=== PATIENT | male | born 1985 | race Caucasian/White ===

== ENCOUNTER 2020-08-11 10:26 | Outpatient (CLI) | payer BC, SELFPAY ==
[2020-08-11 10:36] LABS: Hemoglobin 15.7 g/dL (14.0-18.0); Mean Corpuscular HGB Conc 33.4 g/dL (32.0-36.0); Mean Corpuscular Volume 89.7 fL (78.0-102.0); Platelet Count Result 247 K/mm3 (150-420); Red Blood Count 5.24 M/mm3 (4.70-6.10); White Blood Count 7.9 K/mm3 (4.8-10.8)
[2020-08-11 11:40] LABS: Alanine Aminotransferase 82 U/L (16-63); Albumin Level 4.4 g/dL (3.4-5.0); Alkaline Phosphatase 59 U/L (46-116); Anion Gap 12 mmol/L (8-16); Aspartate Amino Transferase 41 U/L (15-37); Bilirubin,Total 1.3 mg/dL (0.00-1.00); Blood Urea Nitrogen 12 mg/dL (7-18); Calcium 9.3 mg/dL (8.5-10.1); Carbon Dioxide 25 mmol/L (21-32); Chloride 104 mmol/L (98-108); Cholesterol 251 mg/dL (0-200); Estimated Glomerular Filt Rate > 60; Glucose 89 mg/dL (70-99); HDL Direct 43 mg/dL (40-60); LDL Cholesterol Calculated 161 mg/dL (<130); Osmolality Calculated 290 mOsm/kg (285-295); Potassium 5.2 mmol/L (3.5-5.1); Sodium 141 mmol/L (136-145); Total Protein 7.9 g/dL (6.4-8.2); Triglycerides 235 mg/dL (0-150)
== END 2020-08-11 10:27 | disposition home or self-care (01) ==
LOC: CHSLAB 10:28
PROVIDERS: PCP Family Medicine; Visit Provider Family Medicine
DX: Z00.00 Encounter for general adult medical examination without abnormal findings (principal); B07.9 Viral wart, unspecified; K64.4 Residual hemorrhoidal skin tags
CPT/HCPCS: 36415; 80053; 80061; 85027

== ENCOUNTER 2020-08-15 12:25 | Outpatient (CLI) | payer BC, SELFPAY ==
--- NOTE | ~2020-08-15 | US_ITS ---
US right upper quadrant INDICATION: Elevated transaminase PROCEDURE: Realtime right upper abdominal ultrasound. COMPARISON: No prior studies for comparison. FINDINGS: The pancreas is normal without focal mass or pancreatic ductal dilation. Liver echotexture is increased, consistent with fatty infiltration. There is normal directional flow in the portal ve in. The gallbladder is normal without stones, gallbladder wall thickening or pericholecystic fluid. Comm on bile duct measures 3 mm. No sonographic Mosquera's sign. IMPRESSION: 1: Hepatic steatosis. Reviewed, dictated and finalized at location A. MONITOR IMPRESSION: 1: Hepatic steatosis.
[2020-08-15 13:05] LABS: Prothrombin Time 10.6 Seconds (9.64-11.0)
[2020-08-17 10:29] LABS: Hepatitis A Antibody IgM Nonreactive; Hepatitis B Core Antibody Nonreactive (Nonreactive); Hepatitis B Surface Antigen Nonreactive (Nonreactive); Hepatitis C Signal to Cutoff 0.02 ratio (<1.00); Hepatitis C Virus Antibody Nonreactive (Nonreactive)
[2020-08-18 22:09] LABS: Tissue Transglutaminase IgG Ab 1 U/mL (<6)
[2020-08-19 12:49] LABS: ANA Cascade Screen Negative (Negative)
[2020-08-19 12:53] LABS: Alpha-1-Antitrypsin, QN 117 mg/dL (83-199); Ceruloplasmin 25 mg/dL (18-36)
== END 2020-08-15 12:26 | disposition home or self-care (01) ==
LOC: CHSIMG 12:29
PROVIDERS: PCP Family Medicine; Visit Provider Family Medicine
DX: R74.01 Elevation of levels of liver transaminase levels (principal)
CPT/HCPCS: 36415; 76705; 80074; 82103; 82390; 83516; 85610; 86038